=== PATIENT | female | born 1955 | race Caucasian/White ===

== ENCOUNTER → 2017-10-14 | Outpatient (CLI) | payer OTHER | LOC: M.RAD 16:00 | DX: Z12.31 Encounter for screening mammogram for malignant neoplasm of breast (principal) ==

== ENCOUNTER → 2018-10-26 | Outpatient (CLI) | payer OTHER | LOC: M.RAD 16:24 | DX: Z12.31 Encounter for screening mammogram for malignant neoplasm of breast (principal) ==

== ENCOUNTER → 2020-04-24 | Outpatient (CLI) | payer OTHER ==
--- NOTE | 2020-04-24 17:05 | EXE ---
[place] [address] STRESS ECHOCARDIOGRAM Name: DAVID STEVE Room: [facility]#: [id number] Admission: 04/24/20 Attend Phys: Fortino Zavala MD Discharge: Date of : 59 Date of Service: 04/24/20 1704 Report #: [id number] THIS REPORT FOR: cc: Sarah Ryan Linda J. DO Holkins,Harry Rogers MD [facility] ~ ADDENDUM APPROVED REPORT Study performed: 04/24/2020 15:50:39 Exam: Stress Echocardiogram Indication: Chest pain , Dyspnea Patient Location: Out-Patient Stress Nurse: Muna Diaz RN Supervising Physician: Harry Zamora MD Ht: 5 ft 6 in HR: 77 bpm BP: 173/83 mmHg Medical History Cardiac Risk Factors: HTN, Tobacco History (Former) , Age Procedure The patient underwent an Exercise Stress Test using the Jordin Protocol. Blood pressure, heart rate, and EKG were monitored. An Echocardiogram was performed by avionics systems technician in four stages in quad fashion. At peak stress, four selected images were obtained and placed side by side with resting images for comparison. Stress Test Details Stress Test: Exercise stress testing was performed using a Jordin protocol. HR Resting HR: 77 bpm Max Heart Rate (APMHR): 158 bpm Max HR Achieved: 143 bpm Target HR (85% APMHR): 134 bpm % of APMHR: 90 Recovery HR: 92 bpm HR response to stress: Normal HR response to stress BP Resting BP: 173/83 mmHg Max BP: 267/109 mmHg Recovery BP: 194/95 [place] [address] STRESS ECHOCARDIOGRAM Name: DAVID STEVE Room: [facility]#: [id number] Admission: 04/24/20 Attend Phys: Fortino Zavala MD Discharge: Date of : 59 Date of Service: 04/24/20 1704 Report #: [id number] BP response to stress: Abnormal hypertensive response to stress. ECG Resting ECG: sinus rhythm, minor IVCD right type Stress ECG: Sinus Tachycardia ST Change: minor nonspecific st=t changes Arrhythmia: None Recovery EC/2- 1 mm of slightly downsloping inferior and anterolateral st segment depression from 4-6 minutes post exercise Recovery Arrhythmia: none Clinical Reason for Termination: Maximal effort, Dyspnea, Completed protocol Exercise duration: 5 min 34 sec Highest Stage Achieved: Stage 2: 2.5 mph at 12% grade. Exercise capacity: 7.05 METs Pre-Stress Echo The resting Echocardiogram showed normal left ventricular contractility with an estimated Ejection Fraction of about 55-60%. Normal wall motion in all segments on baseline images. Post-Stress Echo The stress Echocardiogram showed normal left ventricular contractility with an estimated Ejection Fraction of about 65-70%. Normal augmentation of wall motion in all segments on post stress images. Conclusion Clinical Response: Non-ischemic Exercise Capacity: Below Average Stress ECG Response: Equivocal Stress Echo Images: Non-ischemic Other Information Study Quality: Fair <ELECTRONICALLY SIGNED> By: Harry Zamora MD, FACC 04/24/20 1704 03 03 Harry Zamora MD, FACC /INF
== END ==
LOC: M.CRD 03-20 15:00
PROVIDERS: ATTEND Internal Medicine Cardiovascular Disease
DX: R07.1 Chest pain on breathing (principal)

== ENCOUNTER → 2020-07-18 | Outpatient (CLI) | payer OTHER | LOC: M.RAD 16:20 | PROVIDERS: ATTEND Student in an Organized Health Care Education/Training Program | DX: Z12.31 Encounter for screening mammogram for malignant neoplasm of breast (principal) ==

== ENCOUNTER 2020-11-21 19:54 | Observation (INO) | payer OTHER ==
[~2020-11-21] VITALS: Ht 167.6 cm; Wt 87.1 kg
[2020-11-21 20:04] VITALS: BP 216/86
[2020-11-21] MEDS ORDERED: LOSARTAN-HCTZ1 EAC2 PO (20:08)
[2020-11-21 20:44] LABS: ABSOLUTE BASOPHILS 0.1 thou/uL (0.0-0.2); ABSOLUTE EOSINOPHILS 0.2 thou/uL (0.0-0.7); ABSOLUTE LYMPHOCYTES 3.9 thou/uL (0.8-5.3); ABSOLUTE NEUTROPHILS 6.4 thou/uL (1.6-8.1); BASOPHILS 0.7 %; EOSINOPHILS 1.6 %; HEMATOCRIT 40.4 % (37.0-47.0); HEMOGLOBIN 13.3 gm/dL (12.0-15.0); MCH 27.3 pg (26.0-34.0); MCHC 32.8 g/dL (28.0-37.0); MCV 83.1 fL (80.0-100.0); MONOCYTES 8.7 %; NUCLEATED RBCS 0 /100WBC; PLATELET COUNT* 361 thou/uL (150-400); RBC 4.86 mil/uL (4.20-5.00); RDW-CV 16.5 % (10.5-14.5); WBC 11.6 thou/uL (4.0-11.0)
[2020-11-21 20:53] LABS: CALCIUM 9.6 mg/dL (8.5-10.1); CREATININE 0.8 mg/dL (0.6-1.3); POTASSIUM 3.7 mmol/L (3.5-5.1)
[2020-11-21 20:56] LABS: PROTIME 10.7 Seconds (9.20-11.50)
[2020-11-21 21:03] LABS: ALBUMIN 4.5 g/dL (3.4-5.0); TOTAL BILIRUBIN 0.6 mg/dL (<0.1-1.0); TOTAL PROTEIN 8.1 g/dL (6.4-8.2)
[2020-11-21 21:57] LABS: URINE BILIRUBIN NEGATIVE (Negative); URINE BLOOD NEGATIVE (Negative); URINE CLARITY CLEAR; URINE COLOR YELLOW; URINE GLUCOSE-RANDOM NEGATIVE (Negative); URINE KETONES NEGATIVE (Negative); URINE LEUKOCYTES-REFLEX NEGATIVE (Negative); URINE NITRITE-REFLEX NEGATIVE (Negative); URINE PROTEIN NEGATIVE (Negative); URINE SPECIFIC GRAVITY <= 1.005 (1.005-1.030); URINE UROBILINOGEN 0.2 E.U./dl (0.2-1.0)
[2020-11-22] VITALS (7 sets, daily range): BP systolic 113–168; BP diastolic 45–86
--- NOTE | 2020-11-22 11:16 | EKG ---
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: TAMMIE : 1955 Requested By: Zoila Bose Order Number: [id number] MD: Fortino Zavala Measurements Intervals [place] Rate: 77 P: 8 VA: 152 QRS: 13 QRSD: 111 T: 55 QT: 394 QTc: 446 Interpretive Statements Sinus rhythm Multiple ventricular premature complexes RSR' in V1 or V2, probably normal variant Baseline wander in lead(s) V6 No previous ECG available for comparison Electronically Signed On 11-22-2020 11:15:57 CDT by Fortino Zavala [email or web address] <ELECTRONICALLY SIGNED> By: Fortino Zavala MD, FAC 11/22/20 1115 01 01 Fortino Zavala MD, FAC /EPI
[2020-11-23 00:14] VITALS: BP 132/69
[2020-11-23 04:11] LABS: ABSOLUTE BASOPHILS 0.1 thou/uL (0.0-0.2); ABSOLUTE EOSINOPHILS 0.2 thou/uL (0.0-0.7); ABSOLUTE LYMPHOCYTES 4.5 thou/uL (0.8-5.3); ABSOLUTE NEUTROPHILS 5.4 thou/uL (1.6-8.1); BASOPHILS 0.9 %; EOSINOPHILS 1.8 %; HEMATOCRIT 37.9 % (37.0-47.0); HEMOGLOBIN 12.6 gm/dL (12.0-15.0); LYMPHOCYTES 40.6 %; MCH 27.8 pg (26.0-34.0); MCHC 33.3 g/dL (28.0-37.0); MCV 83.7 fL (80.0-100.0); MONOCYTES 8.7 %; MPV 8.3 fl. (7.2-11.1); NUCLEATED RBCS 0 /100WBC; PLATELET COUNT* 340 thou/uL (150-400); RBC 4.53 mil/uL (4.20-5.00); RDW-CV 16.3 % (10.5-14.5); WBC 11.1 thou/uL (4.0-11.0)
[2020-11-23 04:13] VITALS: BP 131/72
[2020-11-23 04:21] LABS: CREATININE 0.6 mg/dL (0.6-1.3); POTASSIUM 3.7 mmol/L (3.5-5.1)
[2020-11-23] MEDS ORDERED: DILTIAZEM 24HR120 M1 PO (09:54)
[2020-11-23 10:31] VITALS: BP 141/61
[2020-11-23 11:30] VITALS: BP 141/61
--- NOTE | 2020-11-25 12:39 | CON ---
[address] [address] CONSULTATION Name: POWERDAVID Tayler Room: [address] Shay Mao#: [id number] Admission: 11/22/20 Attend Phys: Cherri Pritchard Discharge: 11/23/20 Date of : 59 Report #: [id number] THIS REPORT FOR: cc: Sarah Ryan,Sarah Mojica,Fortino Choudhury MD [facility] ~ DATE OF SERVICE: 11/22/2020 CARDIOLOGY CONSULTATION HISTORY OF PRESENT ILLNESS: The patient is a 64-year-old single white female who I was asked to see in the hospital today after she complained of palpitations. The patient has a history of chest pain, but previous stress echocardiogram in 04/2020 showed no evidence of ischemia with an ejection fraction of 60%. She has a long history of hypertension, but complained of shortness of breath on carvedilol, which was subsequently discontinued. She does not exercise on a regular basis. She was doing well until yesterday at work, she felt lightheaded, had a headache. She started shaking all over, her hands were tingling. She felt a pounding with an irregular heartbeat. Her father actually brought her to the Emergency Room where she was admitted for further evaluation and treatment. She denied any chest pain, fever, cough, shortness of breath, syncope, edema. PAST MEDICAL HISTORY: She has had resection of a colon cancer, cholecystectomy, hypertension. CURRENT MEDICATION: Includes losartan/HCTZ 100-12.5 a day. ALLERGIES: She has no known drug allergies. FAMILY HISTORY: Negative for heart disease. SOCIAL HISTORY: She is single, lives by herself in [place]. 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 Quit smoking years ago. No alcohol abuse. REVIEW OF SYSTEMS: No history of stroke, asthma, liver disease, kidney disease, cancer, psychiatric illness, chronic skin condition. PHYSICAL EXAMINATION: GENERAL: Revealed a middle-aged female, who appeared in no distress. VITAL SIGNS: She had a blood pressure of 150/70, pulse 70. She is afebrile. HEENT: She was anicteric. Conjunctivae pink. Mucous membranes are moist. NECK: Veins not distended. No carotid bruits. Neck supple. CHEST: Clear [place] [address] CONSULTATION Name: LILIASYLDAVID L Room: [address] [place]#: [id number] Admission: 11/22/20 Attend Phys: Cherri Pritchard Discharge: 11/23/20 Date of : 59 Report #: [id number] CARDIOVASCULAR: Regular rate and rhythm. ABDOMEN: Soft. EXTREMITIES: Had no edema. Dorsalis pedis pulse 2+ bilaterally. SKIN: Cool and dry. NEUROLOGIC: Nonfocal. Her ECG on admission to the Emergency Room last night showed a sinus rhythm and occasional PVC. Her workup, she had a chest x-ray last night that showed normal heart size, clear lung mon[place]. She underwent a CT scan of the abdomen that showed no acute abnormality. LABORATORY WORK: Sodium 134, creatinine 0.8. Lipase elevated at 601. Troponin 0.06. BNP 68. White blood cell count 11.6, hemoglobin 13.3. Her COVID antigen stat test was negative. Urinalysis was negative for protein. IMPRESSION AND RECOMMENDATIONS: 1. Palpitations. I would consider discharging the patient with a informatics scientist. 2. Premature ventricular contractions. I would not treat at this time. The patient could not tolerate a beta sidney in the past. 3. Hypertension. The patient is on an ARB and diuretic. 4. Previous tobacco abuse. <ELECTRONICALLY SIGNED> By: Fortino Zavala MD, FACC 11/25/20 1239 1304 1922Dgeorgie Zavala MD, FACC /nt
== END 2020-11-23 12:00 | disposition home or self-care (01) ==
LOC: M.ERS 19:54 → M.2W 11-22 00:40 → M.TBA-ER 11-22 00:40 → M.2W 11-22 01:46
PROVIDERS: Internal Medicine; Personal Emergency Response Attendant; ADMIT Internal Medicine; ATTEND Internal Medicine
DX: R00.2 Palpitations (principal); Z20.822 Contact with and (suspected) exposure to COVID-19; R07.89 Other chest pain; I10 Essential (primary) hypertension; I49.3 Ventricular premature depolarization; E66.9 Obesity, unspecified; R74.02 Elevation of levels of lactic acid dehydrogenase [LDH]; Z90.49 Acquired absence of other specified parts of digestive tract; Z98.890 Other specified postprocedural states; Z87.891 Personal history of nicotine dependence

== ENCOUNTER 2020-11-27 16:34 | Emergency (ER) | payer OTHER ==
[~2020-11-27] VITALS: Ht 167.6 cm; Wt 87.1 kg
[~2020-11-27 16:34] MED LIST: DILTIAZEM 24HR120 M1 PO; LOSARTAN-HCTZ1 EAC2 PO
[2020-11-27] MEDS ORDERED: PROTONIX40 M2 PO (16:45)
[2020-11-27 17:00] LABS: ABSOLUTE BASOPHILS 0.1 thou/uL (0.0-0.2); ABSOLUTE EOSINOPHILS 0.3 thou/uL (0.0-0.7); ABSOLUTE LYMPHOCYTES 4.5 thou/uL (0.8-5.3); ABSOLUTE MONOCYTES 0.9 thou/uL (0.0-1.2); BASOPHILS 0.9 %; EOSINOPHILS 2.2 %; HEMATOCRIT 39.4 % (37.0-47.0); LYMPHOCYTES 38.7 %; MCH 27.5 pg (26.0-34.0); MCHC 33.1 g/dL (28.0-37.0); MONOCYTES 7.4 %; MPV 7.9 fl. (7.2-11.1); NUCLEATED RBCS 0 /100WBC; PLATELET COUNT* 380 thou/uL (150-400); POLYS 50.8 %; RBC 4.74 mil/uL (4.20-5.00); RDW-CV 16.3 % (10.5-14.5); WBC 11.7 thou/uL (4.0-11.0)
[2020-11-27 17:07] LABS: CALCIUM 9.3 mg/dL (8.5-10.1); CREATININE 0.8 mg/dL (0.6-1.3); POTASSIUM 3.2 mmol/L (3.5-5.1)
[2020-11-27 17:09] LABS: APTT 25.7 Seconds (25.0-31.3); PROTIME 10.5 Seconds (9.20-11.50)
[2020-11-27 17:18] LABS: ALBUMIN 4.2 g/dL (3.4-5.0); TOTAL BILIRUBIN 0.4 mg/dL (<0.1-1.0); TOTAL PROTEIN 7.7 g/dL (6.4-8.2)
[2020-11-27 19:37] VITALS: BP 124/59
--- NOTE | 2020-11-28 12:14 | EKG ---
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 Partner: tp : 1955 Requested By: Britt Jefferson Order Number: [id number] MD: Harry Zamora Measurements Intervals [place] Rate: 78 P: 52 CT: 160 QRS: 22 QRSD: 118 T: 62 QT: 408 QTc: 465 Interpretive Statements Sinus rhythm Nonspecific intraventricular conduction delay Nonspecific inferolateral ST-T abnormality; consider ischemia Compared to ECG 11/21/2020 20:02:03 Intraventricular conduction delay now present Ventricular premature complex(es) no longer present ST-T changes are slightly more prominent Electronically Signed On 11-28-2020 12:13:52 CDT by Harry Zamora [email or web address] <ELECTRONICALLY SIGNED> By: Harry Zamora MD, FACC 11/28/20 1213 1639 1639 Harry Zamora MD, [facility] /EPI
== END 2020-11-27 19:38 | disposition home or self-care (01) ==
LOC: M.ERS 16:34
PROVIDERS: Nurse Practitioner Family
DX: R00.2 Palpitations (principal); R42 Dizziness and giddiness; I10 Essential (primary) hypertension; K21.9 Gastro-esophageal reflux disease without esophagitis; Z87.891 Personal history of nicotine dependence; Z88.8 Allergy status to other drugs, medicaments and biological substances

== ENCOUNTER 2021-01-14 10:21 | Emergency (ER) | payer OTHER ==
[~2021-01-14] VITALS: Ht 170.2 cm; Wt 87.5 kg
[~2021-01-14 10:21] MED LIST changes: +PROTONIX40 M2 PO
[2021-01-14 10:41] LABS: ABSOLUTE BASOPHILS 0.1 thou/uL (0.0-0.2); ABSOLUTE EOSINOPHILS 0.1 thou/uL (0.0-0.7); ABSOLUTE MONOCYTES 0.7 thou/uL (0.0-1.2); ABSOLUTE NEUTROPHILS 7.7 thou/uL (1.6-8.1); BASOPHILS 0.7 %; EOSINOPHILS 0.7 %; HEMATOCRIT 40.7 % (37.0-47.0); HEMOGLOBIN 13.7 gm/dL (12.0-15.0); LYMPHOCYTES 25.9 %; MCH 28.1 pg (26.0-34.0); MCHC 33.5 g/dL (28.0-37.0); MCV 83.9 fL (80.0-100.0); MONOCYTES 6.1 %; MPV 8.2 fl. (7.2-11.1); NUCLEATED RBCS 0 /100WBC; PLATELET COUNT* 371 thou/uL (150-400); POLYS 66.6 %; RBC 4.86 mil/uL (4.20-5.00); RDW-CV 16.2 % (10.5-14.5); WBC 11.5 thou/uL (4.0-11.0)
[2021-01-14 10:44] LABS: URINE BILIRUBIN NEGATIVE (Negative); URINE BLOOD NEGATIVE (Negative); URINE CLARITY CLEAR; URINE COLOR YELLOW; URINE GLUCOSE-RANDOM NEGATIVE (Negative); URINE KETONES NEGATIVE (Negative); URINE LEUKOCYTES-REFLEX TRACE (Negative); URINE NITRITE-REFLEX NEGATIVE (Negative); URINE PROTEIN NEGATIVE (Negative); URINE SPECIFIC GRAVITY 1.015 (1.005-1.030); URINE UROBILINOGEN 0.2 E.U./dl (0.2-1.0)
[2021-01-14 10:50] LABS: CALCIUM 10.1 mg/dL (8.5-10.1); CREATININE 0.8 mg/dL (0.6-1.3); POTASSIUM 3.7 mmol/L (3.5-5.1)
[2021-01-14 10:54] LABS: SQUAMOUS 0-3 Few /LPF (0-3); URINE WBC-REFLEX 0-5 Rare /HPF (0-5)
[2021-01-14 10:55] LABS: BACTERIA-REFLEX 1-9 Few /HPF (None Seen); CASTS None Seen /LPF (None Seen); CRYSTALS None Seen /LPF (None Seen); MUCUS None Seen strn/LPF (None Seen); URINE RBC None Seen /HPF (0-2)
[2021-01-14 11:04] LABS: ALBUMIN 4.4 g/dL (3.4-5.0); CK-MB MASS 1.1 ng/mL (<0.5-3.6); MAGNESIUM 2.2 mg/dL (1.8-2.4); TOTAL BILIRUBIN 0.5 mg/dL (<0.1-1.0); TOTAL PROTEIN 8.2 g/dL (6.4-8.2)
[2021-01-14 12:34] VITALS: BP 149/77
--- NOTE | 2021-01-14 15:47 | EKG ---
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: : 1955 Requested By: Jayden Syed Order Number: [id number] MD: Harry Zamora Measurements Intervals [place] Rate: 83 P: 59 ME: 147 QRS: 21 QRSD: 111 T: 61 QT: 403 QTc: 474 Interpretive Statements Sinus rhythm RSR' in V1 or V2, probably normal variant Compared to ECG 11/27/2020 16:39:42 RSR' in V1 or V2 now present Intraventricular conduction delay no longer present ST-T abnormalities have diminished Electronically Signed On 01-14-2021 15:47:47 CDT by Harry Zamora [email or web address] <ELECTRONICALLY SIGNED> By: Harry Zamora MD, [facility] 01/14/21 1547 1036 1036 Harry Zamora MD, [facility] /EPI
== END 2021-01-14 12:36 | disposition home or self-care (01) ==
LOC: M.ERS 10:21
PROVIDERS: Nurse Practitioner Psychiatric/Mental Health
DX: I10 Essential (primary) hypertension (principal); I95.1 Orthostatic hypotension; K21.9 Gastro-esophageal reflux disease without esophagitis; Z87.891 Personal history of nicotine dependence; Z88.8 Allergy status to other drugs, medicaments and biological substances

== ENCOUNTER → 2021-07-22 | Outpatient (CLI) | payer OTHER | LOC: M.RAD 08:40 | PROVIDERS: ATTEND Student in an Organized Health Care Education/Training Program | DX: Z12.31 Encounter for screening mammogram for malignant neoplasm of breast (principal) ==

== ENCOUNTER → 2021-09-23 | Outpatient (CLI) | payer OTHER | LOC: M.RAD 08:22 | PROVIDERS: ATTEND Student in an Organized Health Care Education/Training Program | DX: M85.89 Other specified disorders of bone density and structure, multiple sites (principal) ==